=== PATIENT | female | born 2005 ===

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

== ENCOUNTER → 2025-01-04 | Outpatient (CLI) | payer OTHER | END | disposition home or self-care (01) | LOC: SONOGRAMA 11:36 | DX: N83.201 Unspecified ovarian cyst, right side (principal) ==